=== PATIENT | female | born 1980 | race Caucasian/White ===

== ENCOUNTER 2021-12-06 11:49 | Outpatient (CLI) | payer OTHER | END 2021-12-06 11:50 | disposition home or self-care (01) | LOC: CSHRAD 11:49 | PROVIDERS: ATTEND Family Medicine | DX: M25.531 Pain in right wrist (principal) ==

== ENCOUNTER 2022-01-02 09:34 | Outpatient (CLI) | payer OTHER ==
[2022-01-02 10:22] LABS: Hemoglobin 11.7 g/dL (12.0-15.5); Mean Corpuscular HGB CONC 34.1 g/dL (32.0-36.0); Mean Corpuscular Hemoglobin 32.3 pg (27.0-33.0); Mean Corpuscular Volume 94.8 fl (81.6-98.3); Mean Platelet Volume 8.9 fl (7.4-10.4); Platelet Count 205 10x3/uL (150-450); RBC Distribution Width 15.3 % (11.5-14.5); Red Blood Cell (RBC) Count 3.62 10x6/uL (3.90-5.03); White Blood Cell (WBC) Count 6.5 10x3/uL (3.5-10.5)
[2022-01-02 11:02] LABS: Anion Gap 15 mmol/L (10-20); BUN (Urea Nitrogen) 12 mg/dL (7.0-18.7); Calc. Creatinine Clearance 0 mL/min (70-130); Calcium 9.4 mg/dL (7.8-10.44); Carbon Dioxide 25 mmol/L (22-29); Chloride 105 mmol/L (98-107); Glucose 97 mg/dL (70-105); Potassium 4.2 mmol/L (3.5-5.1); Sodium 141 mmol/L (136-145)
[2022-01-02 20:11] LABS: SARS-CoV-2 PCR by NAA Not Detected (NotDetected)
== END 2022-01-02 09:35 | disposition home or self-care (01) ==
LOC: CSHLAB 09:34
PROVIDERS: ATTEND Orthopaedic Surgery
DX: Z01.818 Encounter for other preprocedural examination (principal); Z20.822 Contact with and (suspected) exposure to COVID-19; G56.01 Carpal tunnel syndrome, right upper limb
CPT/HCPCS: 80048; 85027; 93005; 93010; U0003; U0005

== ENCOUNTER 2022-01-05 06:59 | Day surgery (SDC) | payer OTHER ==
[2022-01-03 12:17] VITALS: BMI 25.6
[2022-01-05] MEDS ORDERED: Lidocaine 1% MPF 2 ML VIAL ONE (07:46)
[2022-01-05] MEDS ORDERED: Scopolamine 1.5 mg/72 hour Patch ONE (08:39)
[2022-01-05] MEDS ORDERED: PROPOFOL 20 ML ONE (09:27)
[2022-01-05] MEDS ORDERED: Fentanyl 100 MCG/2 ML VIAL ONE (09:27)
[2022-01-05] MEDS ORDERED: Lidocaine 1% PF 5 ML VIAL ONE (09:30)
[2022-01-05] MEDS ORDERED: Ondansetron PF 4 MG/2 ML Vial ONE (09:30)
[2022-01-05] MEDS ORDERED: Dexamethasone 4 mg/ml Vial ONE (09:30)
[2022-01-05] MEDS ORDERED: Bupivacaine PF 0.5% 30 ML VIAL ONE (09:32)
[2022-01-05] MEDS ORDERED: Neomycin-Polymyxin 1 ML AMP ONE (09:33)
[2022-01-05] MEDS ORDERED: ceFAZolin 2 GM/Dextrose 50 ML IVPB ONE (09:37)
[2022-01-05] MEDS ORDERED: EPINEPHrine 1 MG/ML AMP ONE (09:47)
== END 2022-01-05 11:10 | disposition home or self-care (01) ==
LOC: CSHSDC 06:59
PROVIDERS: ATTEND Orthopaedic Surgery
PROC: 01N50ZZ Release Median Nerve, Open Approach (ICD-10-PCS; principal; 2022-01-05)
DX: G56.01 Carpal tunnel syndrome, right upper limb (principal); M54.9 Dorsalgia, unspecified; G89.29 Other chronic pain; Z79.891 Long term (current) use of opiate analgesic
CPT/HCPCS: J0171; J0690; J1100; J2405; J2704; J3010; S0020

== ENCOUNTER 2025-04-03 09:59 | Emergency (ER) | payer MEDICAID ==
[2025-04-03 11:14] LABS: INR-International Normal Ratio 1.0; PTT 23.8 sec (22.0-33.0); Prothrombin Time 10.9 sec (9.5-12.1)
[2025-04-03 11:16] LABS: ALT (SGPT) 26 U/L (Less than 34); AST (SGOT) 20 U/L (11-34); Albumin 4.2 g/dL (3.1-4.5); Alkaline Phosphatase 97 U/L (40-110); Anion Gap 14 mmol/L (10-20); BUN (Urea Nitrogen) 12 mg/dL (7.0-18.7); Bilirubin, Total 0.8 mg/dL (0.3-1.2); Calc. Creatinine Clearance 0 mL/min (70-130); Calcium 9.1 mg/dL (7.8-10.44); Carbon Dioxide 23 mmol/L (22-29); Chloride 107 mmol/L (98-107); Globulin 2.6 g/dL (2.4-3.5); Glucose 100 mg/dL (70-105); Potassium 3.5 mmol/L (3.5-5.1); Sodium 140 mmol/L (136-145)
[2025-04-03 11:19] LABS: Hematocrit 29.5 % (34.9-44.5); Hemoglobin 9.9 g/dL (12.0-15.5); Mean Corpuscular Hemoglobin 29.3 pg (27.0-33.0); Mean Corpuscular Volume 87.3 fL (81.6-98.3); Platelet Count 105 10x3/uL (150-450); Red Blood Cell (RBC) Count 3.38 10x6/uL (3.90-5.03); White Blood Cell (WBC) Count 5.64 10x3/uL (3.5-10.5)
[2025-04-03 12:04] LABS: Lipase Less than 4 U/L (8-78); MDiff Complete? YES
[2025-04-03 12:05] LABS: Nucleated RBC (Manual Ct) 2 % (0); Reflex for Review?? YES
== END 2025-04-03 12:00 | disposition home or self-care (01) ==
LOC: CSHERS 09:59
DX: D25.9 Leiomyoma of uterus, unspecified (principal); D64.9 Anemia, unspecified; N93.9 Abnormal uterine and vaginal bleeding, unspecified; Z85.3 Personal history of malignant neoplasm of breast
CPT/HCPCS: 74177; 80053; 83690; 85025; 85060; 85610; 85730